=== PATIENT | male | born 1960 | race Two or more races ===

== ENCOUNTER 2018-03-23 22:25 | Inpatient (IN) | payer MEDICAID, OTHER ==
[~2018-03-23] VITALS: Ht 195.6 cm; Wt 127.0 kg
--- NOTE | 2018-03-23 22:42 | NUR ---
PT STATES "SHARP CP/PALPITATIONS X2 DAYS RADIATING FROM THE MID SCAPULAR AREA 03/19". PT STATES HE "WAS AT [facility] AND SIGNED AMA". PT IS AAOX4. SKIN WNL. NO S/S OF ACUTE DISTRESS NOTED. RESP EVEN AND UNLABORED. PT PLACED ON BATCH ROOM TECHNICIAN AND POX. PT SAFETY AND COMFORT MEASURES IN PLACE. AWAITING MD FOR EVAL.
[2018-03-23 23:17] LABS: BASOPHILS # (AUTO) 0.1 /CMM (0.0-0.2); BASOPHILS % (AUTO) 1.2 % (0.0-2.0); HEMATOCRIT 47 % (39-51); HEMOGLOBIN 15.5 g/dL (13.5-17.5); LYMPHOCYTES # (AUTO) 1.8 /CMM (0.8-4.8); MEAN CORPUSCULAR HEMOGLOBIN 32 PG (26.0-33.0); MEAN CORPUSCULAR HGB CONC 33 g/dl (31.0-36.0); MEAN CORPUSCULAR VOLUME 95 fL (80-96); MONOCYTES # (AUTO) 0.8 /CMM (0.1-1.30); MONOCYTES % (AUTO) 11.1 % (2.0-12.0); NEUTROPHILS # (AUTO) 3.9 /CMM (1.8-8.9); NEUTROPHILS % (AUTO) 57.7 % (43.0-81.0); PLATELET COUNT (AUTO) 139 /CMM (150-450); RDW COEFFICIENT OF VARIATION 13.9 (11.5-15.0); RED BLOOD CELL COUNT(AUTO) 4.91 MIL/uL (4.5-6.0); WHITE BLOOD COUNT (AUTO) 6.8 K/uL (4.3-11.0)
[2018-03-23 23:21] LABS: CALCIUM, SERUM 8.8 mg/dL (8.5-10.1); CREATININE 1.2 mg/dL (0.6-1.3); POTASSIUM 3.7 mmol/L (3.5-5.1)
[2018-03-23 23:24] LABS: INR 1.01 (0.87-1.13)
[2018-03-23 23:29] LABS: TROPONIN I 0.315 ng/mL (0.00-0.056)
[2018-03-23] MEDS ORDERED: HYDROCODONE/APAP 5/325MG 1 EACH TABLET ONE (23:34)
[2018-03-23] MEDS ORDERED: ASPIRIN 325 MG TABLET ONE (23:35)
--- NOTE | 2018-03-23 23:52 | NUR ---
REPORT GIVEN TO JOSE A HLUL FOR BC.
--- NOTE | 2018-03-23 23:58 | NUR ---
RECEIVED CALL FROM CASE MANAGEMENT [employer] APPROVAL NUMBER [phone] [place]
[2018-03-24] MEDS ORDERED: ASPIRIN 325 MG TABLET PO ONE
[2018-03-24] MEDS ORDERED: HYDROCODONE/APAP 5/325MG 1 EACH TABLET PO ONE
[2018-03-24 00:30] VITALS: BP 154/106
[2018-03-24 00:35] VITALS: BP 149/99
--- NOTE | 2018-03-24 01:00 | NUR ---
CONTINUING EDUCATION DEAN ADMITTING/OPENING NOTE Patient admitted from the ED, arrived on a stretcher but was able to ambulate independently to the bed in his room. Patient is AAOx4, breathing on RA with no SOB, and currently no signs of acute distress. Telemonitor shows NSR in the 60s. BP is elevated at 156/106 on the left arm and 149/99 on the right arm. Dr. Jim Brennan made aware. IV in the left hand is intact and patent. Patient states that he is having 9/10 pain in the right hand and back due to two recent falls. One fall 2-3 days ago injured his hand, another fall one month ago injured his neck, back, and head, which he claims has been causing him discomfort ever since. Patient denies chest pain. Initial physical exam, past medical history, and admission process completed. Patient has been made comfortable in bed. Girlfriend is at the bedside. Bed is low/locked, two side rails up, and call pickard within reach. Will continue to monitor.
[2018-03-24] MEDS ORDERED: IV NS 0.9% 1,000 ML IV PRN (01:19)
[2018-03-24] MEDS ORDERED: MAGNESIUM HYDROXIDE 30 ML UDC PO PRN (01:30)
[2018-03-24] MEDS ORDERED: MAG HYDROX/AL HYDROX/SIMETH 30 ML UDC PO PRN (01:30)
[2018-03-24] MEDS ORDERED: ONDANSETRON HCL/PF 4 MG/2 ML VIAL IVP PRN (01:30)
[2018-03-24] MEDS ORDERED: NITROGLYCERIN 0.4 MG/TAB BOTTLE SL PRN (01:30)
[2018-03-24] MEDS ORDERED: LORAZEPAM 1 MG TABLET PO PRN (01:30)
[2018-03-24] MEDS ORDERED: ZOLPIDEM TARTRATE 5 MG TABLET PO PRN (01:30)
[2018-03-24] MEDS ORDERED: ACETAMINOPHEN 325 MG TABLET PO PRN (01:30)
[2018-03-24] MEDS ORDERED: HYDROCODONE/APAP 10/325MG 1 EA TABLET PO PRN (01:30)
[2018-03-24] MEDS ORDERED: Z GUARD REMEDY 2 OZ OINT TP PRN (01:30)
[2018-03-24] MEDS ORDERED: ENOXAPARIN SODIUM 40 MG/0.4 ML DISP.SYRIN SQ SCH (03:00)
[2018-03-24 04:00] VITALS: BP 151/92
--- NOTE | 2018-03-24 04:55 | NUR ---
PLANNER/SCHEDULER NOTE - Ativan Patient stated he wanted to leave the hospital AMA. I educated him on the consequences of leaving the hospital against medical advice and encouraged him to stay until the physician saw him today. Patient was pacing the room, reported having feelings of anxiousness, and stated that he hated hospitals. I offered to give him Ativan and he agreed. 1mg PO Ativan was administered as ordered for prn use. Patient is agreeable to staying at least until seen by the doctor. Will continue to monitor.
[2018-03-24 06:57] LABS: TROPONIN I 0.289 ng/mL (0.00-0.056)
--- NOTE | 2018-03-24 07:10 | NUR ---
RICE MILLING SUPERVISOR OPENING NOTES. PT TELE: SR. PT RECEIVED A&0X3, TOLERATING ROOM AIR WITHOUT DISTRESS. PT REPORTING 8/10 PAIN TO BACK AND RIGHT HAND. PT WITH IVC INSITU AND OPERATIONAL WITH IVF PER RX. PT NPO R/T CARDIOLOGY CONSULT. PARTNER FIONA Evans BEDSIDE. PT BED IN LOWEST LOCKED POSITION WITH HANDRAILSX2 AND CALL RAMIREZ WITHIN REACH. PT BRIEFED ON TODAY'S POC AND IS WITHOUT CONCERN OR COMPLAINT AT THIS TIME.
[2018-03-24] MEDS ORDERED: PANTOPRAZOLE 40 MG TABLET.DR PO SCH (07:30)
--- NOTE | 2018-03-24 07:43 | NUR ---
CONTACT LENS CUTTER CLOSING NOTE Patient is AAOx4, breathing on RA with no SOB, and currently no signs of acute distress. NS at 75ml/hr is running through the left hand with no signs of leaking or infiltration. Patient remains in stable condition. Patient care endorsed to day shift nurse.
[2018-03-24] MEDS ORDERED: ALPR0.5T PO (07:55)
[2018-03-24] MEDS ORDERED: CLON1TAB PO (07:55)
[2018-03-24] MEDS ORDERED: HYDR-552 PO (07:55)
[2018-03-24 08:00] VITALS: BP 157/83
[2018-03-24] MEDS ORDERED: HYDROMORPHONE 1 MG/1 ML DISP.SYRIN IV PRN (08:30)
[2018-03-24] MEDS: HYDROMORPHONE INJ 2 MG/ML DISP.SYRIN IV PRN ×2 (08:41→14:43)
[2018-03-24] MEDS: METOPROLOL TARTRATE 25 MG TABLET PO SCH ×2 (08:41→11:53)
[2018-03-24] MEDS ORDERED: IOHEXOL-350 100 ML VIAL IV ONE (09:57)
[2018-03-24] MEDS ORDERED: IV NS 0.9% 250 ML IV ONE (09:57)
[2018-03-24] MEDS ORDERED: CT SWABBABLE VALVE TRANS SET 1 EA INFUS.SET MC ONE (09:57)
[2018-03-24 11:53] VITALS: BP 160/95
[2018-03-24 12:44] LABS: THYROID STIMULATING HORMONE 4.896 uIU/mL (0.358-3.74)
[2018-03-24 13:14] LABS: MAGNESIUM 1.6 mg/dL (1.8-2.4); PHOSPHORUS 2.4 mg/dL (2.5-4.9)
[2018-03-24] MEDS ORDERED: METO25TA20 PO (14:44)
[2018-03-24] MEDS ORDERED: K PHOS NEUTRAL 250 MG TABLET PO ONE (15:30)
--- NOTE | 2018-03-24 15:30 | NUR ---
LATHMAKER D/C NOTES. PT PREPARED FOR D/C PER SUPERINTENDENT SANITATION LW. PT TOLERATING ROOM AIR AND REPORTS CURRENT PAIN MANAGEMENT ADEQUATE. PT IVC REMOVEDX2 AND NAD AT SITES. PT WITH ALL BELONGINGS AND DOCUMENT SIGNED. PT AND PARTNER FIONA BRIEFED ON [facility] D/C PACKET, FOLLOW UP'S THAT THEY ARE REQUIRED TO MAKE, PCP DETAILS, MEDICATIONS AND ARE VERBALIZING UNDERSTANDING, RESOURCES AND INTENT TO FOLLOW POC. PT LEFT WITH PARTNER WITHOUT CONCERN OR COMPLAINT AND GRATEFUL FOR CARE.
[2018-03-24] MEDS ORDERED: MAGNESIUM OXIDE 400 MG TABLET PO SCH (22:00)
[2018-03-24] MEDS ORDERED: ATORVASTATIN 10 MG TABLET PO SCH (22:00)
[2018-03-25] MEDS ORDERED: ASPIRIN 325 MG TABLET PO SCH (09:00)
== END 2018-03-24 16:30 | disposition home or self-care (01) | DRG 190 ==
LOC: ER 22:28 → TELE 03-24 00:13
PROVIDERS: ADMIT Hospitalist; ATTEND Hospitalist
DX: I21.4 Non-ST elevation (NSTEMI) myocardial infarction (principal); D69.6 Thrombocytopenia, unspecified; E86.0 Dehydration; E66.9 Obesity, unspecified; I10 Essential (primary) hypertension; F31.9 Bipolar disorder, unspecified; I48.91 Unspecified atrial fibrillation; Z68.33 Body mass index [BMI] 33.0-33.9, adult; G89.4 Chronic pain syndrome; M54.40 Lumbago with sciatica, unspecified side; K46.9 Unspecified abdominal hernia without obstruction or gangrene; Z88.0 Allergy status to penicillin; M47.9 Spondylosis, unspecified; M77.9 Enthesopathy, unspecified; M46.02 Spinal enthesopathy, cervical region; F41.9 Anxiety disorder, unspecified; S66.901A Unspecified injury of unspecified muscle, fascia and tendon at wrist and hand level, right hand, initial encounter; S63.8X1A Sprain of other part of right wrist and hand, initial encounter; W01.0XXA Fall on same level from slipping, tripping and stumbling without subsequent striking against object, initial encounter; Y92.9 Unspecified place or not applicable; G51.0 Bell's palsy
CPT/HCPCS: 36415; 71045-TC; 72050-TC; 73130-TC; 73200-TC; 75574; 80048-TC; 80061-TC; 83735-TC; 83880; 84100-TC; 84439-TC; 84443-TC; 84484-TC; 85025-TC; 85730-TC; 87081-TC; 93307-TC; A4606; J1170; J1650; J7030; J7050; Q9967; Z7610